=== PATIENT | female | born 1990 | race Caucasian/White ===

== ENCOUNTER 2021-04-23 10:06 | Outpatient (REF) | payer OTHER, SELFPAY ==
[2021-04-23 11:31] LABS: Lactate Dehydrogenase 146 U/L (122-220)
[2021-04-23 11:57] LABS: Erythrocyte Sedimentation Rate 6 MM/HR (0-20)
[2021-04-24 08:42] LABS: Lyme Abs Screen <0.90 index
[2021-04-24 13:21] LABS: Anti Nuclear Antibody Screen NEGATIVE (NEGATIVE)
== END 2021-04-23 10:07 | disposition home or self-care (01) ==
LOC: HO.LAB 10:06
PROVIDERS: PCP Internal Medicine; Visit Provider Psychiatry & Neurology Neurology
DX: M79.10 Myalgia, unspecified site (principal)
CPT/HCPCS: 36415; 82550; 83615; 85652; 86038; 86039; 86617; 86618